=== PATIENT | male | born 2000 | race African-American/Black ===

== ENCOUNTER 2019-01-10 20:52 | Emergency (ER) | payer MEDICAID ==
[~2019-01-10] VITALS: Ht 190.5 cm; Wt 149.7 kg
[2019-01-10 20:57] VITALS: Ht 190.5 cm; Wt 149.7 kg
[2019-01-10 22:15] VITALS: BP 118/38
== END 2019-01-10 22:39 | disposition home or self-care (01) ==
LOC: ED 20:52
DX: J06.9 Acute upper respiratory infection, unspecified (principal); R51 Headache; J45.909 Unspecified asthma, uncomplicated; Z88.0 Allergy status to penicillin; Z88.2 Allergy status to sulfonamides
CPT/HCPCS: J1885; J2405; J2765; J7030